=== PATIENT | female | born 1995 | race Caucasian/White ===

== ENCOUNTER 2021-03-03 09:24 | Emergency (ER) | payer OTHER ==
[~2021-03-03 09:24] MED LIST: COLACE 100MG C100 MG PO; IBUPROFEN600 MG PO; LORTAB 5-325 M1 EACH PO; OMEPRAZOLE20 MG PO; PRENATAL 19 CH1 EAC1 PO; PRENATAL VITAM1 EAC5 PO
[2021-03-03 11:02] LABS: RED BLOOD COUNT 5.15 M/UL (4.00-5.10); WHITE BLOOD COUNT 4.9 K/UL (4.5-11.0)
[2021-03-03 11:20] LABS: BUN/CREATININE RATIO 11 (0-10)
[2021-03-03] MEDS ORDERED: MOTION SICKNESS25 M3 PO (12:48)
== END 2021-03-03 13:08 | disposition home or self-care (01) ==
LOC: ER1 09:24
PROVIDERS: Emergency Medicine
DX: R42 Dizziness and giddiness (principal)
CPT/HCPCS: 70450; 80048; 81001; 84703; 85025; 99284

== ENCOUNTER → 2022-05-06 | Outpatient (CLI) | payer OTHER ==
[~2022-05-06] MED LIST changes: +MOTION SICKNESS25 M3 PO
== END ==
LOC: KOH-I 12:15
DX: S99.912A Unspecified injury of left ankle, initial encounter (principal); T14.8XXA Other injury of unspecified body region, initial encounter
CPT/HCPCS: 73610; 73630